=== PATIENT | female | born 1940 | race Caucasian/White ===

== ENCOUNTER 2018-04-19 05:35 | Day surgery (SDC) | payer OTHER ==
[~2018-04-19] VITALS: Ht 167.6 cm; Wt 89.4 kg
[2018-04-19] MEDS ORDERED: CLINDAMYCIN PHOS 600 MG/ D5W 50 ML PREMIX IV ONE (07:00)
[2018-04-19] MEDS ORDERED: LR 1,000 ML IV.SOLN IV ONE (07:15)
[2018-04-19] MEDS ORDERED: SEVOFLURANE 15 MIN GAS INH ONE (07:15)
[2018-04-19] MEDS ORDERED: INSULIN REGULAR, HUMAN 10 UNITS/0.1 ML INJ SUBCUT ONE (07:15)
[2018-04-19] MEDS ORDERED: MIDAZOLAM HCL 5 MG/5 ML VIAL IVP ONE (07:15)
[2018-04-19] MEDS ORDERED: PROPOFOL 200MG/ 20ML VIAL (DIPRIVAN) IV ONE (07:15)
[2018-04-19] MEDS ORDERED: ROCURONIUM BROMIDE 10 MG/ML (ZEMURON) IV ONE (07:15)
[2018-04-19] MEDS ORDERED: KETOROLAC TROMETHAMINE 30 MG VIAL IVP ONE (07:15)
[2018-04-19] MEDS ORDERED: DEXAMETHASONE SOD PHOSPHATE 4 MG/ML VIAL IVP ONE (07:15)
[2018-04-19] MEDS ORDERED: fentaNYL CITRATE 250 MCG/5 ML AMP IV ONE (07:15)
[2018-04-19] MEDS ORDERED: BUPIVACAINE /PF 0.25% 30 ML VIAL INJ ONE (07:15)
[2018-04-19] MEDS ORDERED: ONDANSETRON HCL 4 MG/2 ML VIAL IVP ONE (07:15)
[2018-04-19] MEDS ORDERED: IOHEXOL 50 ML IV ONE (07:33)
[2018-04-19] MEDS ORDERED: POLYMYXIN 500,000/BACIT.10,000 UNITS in NS IRR 1 L IR ONE (07:50)
[2018-04-19] MEDS ORDERED: LR 1,000 ML IV SCH (08:24)
[2018-04-19] MEDS ORDERED: HYDROmorphone 1 MG INJ. 1 MG/ML AMPUL IVP PRN ×3 (08:30→11:15)
[2018-04-19] MEDS ORDERED: HYDROmorphone 2 MG/ML VIAL IVP PRN ×2 (08:30)
[2018-04-19] MEDS ORDERED: MEPERIDINE HCL/PF 25 MG/ML DISP.SYRIN IVP PRN (08:30)
[2018-04-19] MEDS ORDERED: HYDROcodone/ACETAMIN 5-325 MG TAB (NORCO/ VICODIN) PO PRN ×4 (09:15→11:15)
[2018-04-19] MEDS ORDERED: D5/0.45 NS 1,000 ML IV SCH ×2 (09:15→11:07)
[2018-04-19 10:07] VITALS: BP_SYST 110
[2018-04-19] MEDS ORDERED: HYDROcodone/ACETAMIN 5-325 MG TAB (NORCO/ VICODIN) ONE (11:50)
== END 2018-04-19 12:35 | disposition home or self-care (01) ==
LOC: SDS 05:35 → SMU 05:35 → SDS 12:35
PROVIDERS: ATTEND Colon & Rectal Surgery
DX: K80.10 Calculus of gallbladder with chronic cholecystitis without obstruction (principal); K42.0 Umbilical hernia with obstruction, without gangrene; Z79.899 Other long term (current) drug therapy; Z68.30 Body mass index [BMI] 30.0-30.9, adult; Z80.49 Family history of malignant neoplasm of other genital organs; Z82.49 Family history of ischemic heart disease and other diseases of the circulatory system; Z88.0 Allergy status to penicillin; Z88.2 Allergy status to sulfonamides; Z98.890 Other specified postprocedural states; E11.36 Type 2 diabetes mellitus with diabetic cataract; F32.1 Major depressive disorder, single episode, moderate; E11.51 Type 2 diabetes mellitus with diabetic peripheral angiopathy without gangrene; G20 Parkinson's disease; E11.39 Type 2 diabetes mellitus with other diabetic ophthalmic complication; K21.9 Gastro-esophageal reflux disease without esophagitis; I10 Essential (primary) hypertension; E78.5 Hyperlipidemia, unspecified
CPT/HCPCS: 47563; 49587; 74300; 82948; 82962; 88302; 88304; C1727; C1781; J1100; J1815; J1885; J2250; J2405; J2704; J3010; J3490 ×2; J7120; Q9967; 76000